=== PATIENT | male | born 1970 | race Caucasian/White ===

== ENCOUNTER → 2021-12-06 | Outpatient (CLI) | payer BC ==
--- NOTE | 2021-12-07 00:11 | CT ---
EXAMINATION TYPE: CT chest wo con DATE OF EXAM: 12/06/2021 INDICATION: dyspnea CT DLP: 1143.1 mGy.cm Automated Exposure Control for Dose Reduction was Utilized. TECHNIQUE AND CONTRAST: CT scan of the chest is performed without IV contrast as per high-resolution protocol. COMPARISON: X-ray dated 11/21/2021 FINDINGS: Bilateral pulmonary areas of groundglass opacities, linear densities, peripheral reticulations and fi brotic changes demonstrating irregular distribution throughout the lungs, most evident in the left up per lobe. No definite traction bronchiectasis, honeycombing or cystic changes. Patent central airways . No pleural or pericardial effusion. No gross cardiomegaly. The pulmonary trunk measures 3 cm which may suggest pulmonary hypertension. Scattered subcentimeter m ediastinal lymph nodes. No pathologically enlarged lymph nodes in the chest. Suspected enlarged liver . Previous right scapular fixation. Suspected old healed fractures of the anterior aspects of the rig ht upper ribs. Healing fracture of the anterior aspects of the right eighth and ninth ribs. IMPRESSION: Diffuse parenchymal pulmonary fibrotic changes demonstrating irregular distribution as described abov e. If acute presentation, this could be related to acute atypical infection including Covid 19 infect ion. If chronic presentation, this could represent sequela of previous atypical infection like Covid 19 or viral infection however other interstitial lung disease like fibrotic NSIP or connective-tissue disorder cannot be excluded. The pattern is indeterminate for UIP. Recommend clinical correlation an d pulmonology consultation. Follow-up CT scan in 12 months can be also considered for reassessment. I ncidental findings as described above.
== END | disposition home or self-care (01) ==
LOC: RADCTMAIN 06:54
PROVIDERS: ATTEND Internal Medicine Critical Care Medicine
DX: R06.09 Other forms of dyspnea (principal)
CPT/HCPCS: 71250